=== PATIENT | female | born 1995 ===

== ENCOUNTER 2016-11-07 03:24 | Inpatient (IN) ==
[2016-11-07] MEDS ORDERED: FAMOTIDINE 20 MG/2 ML VIAL IV ONE (03:33)
[2016-11-07] MEDS ORDERED: CITRIC ACID/SODIUM CITRATE 30 ML UDCUP PO ONE (03:33)
[2016-11-07] MEDS ORDERED: ceFAZolin 2,000 MG in SODIUM CHLORIDE 0.9% 100 ML IV ONE (03:33)
[2016-11-07] MEDS ORDERED: SODIUM CHLORIDE 0.9% 250 ML IV PRN ×3 (03:35→18:27)
[2016-11-07 03:39] LABS: Basophils % 0.1 % (0.0-0.8); Eosinophils % 0.2 % (0.00-10.9); Immature Granulocytes % 0.5 %; Immature Granulocytes Absolute 0.06 #; Lymphocytes # 1.8 10*3/uL (1.4-4.0); Lymphocytes % 13.5 % (21.3-54.2); Mean Corpuscular HGB Conc 32.1 GM/DL (32-36); Mean Corpuscular Hemoglobin 26 PG (27-34); Mean Corpuscular Volume 79.8 FL (87-102); Mean Platelet Volume 12.1 FL (9.6-12.0); Monocytes # 0.9 10*3/uL (0.11-0.8); Monocytes % 6.8 % (1.7-12.7); Neutrophils # 10.3 10*3/uL (1.4-7.4); Neutrophils % 78.9 % (38.7-73.9); Platelet Count 167 T/CUMM (130-400); Red Blood Count 3.51 MC/CUMM (3.8-5.5); Red Cell Distribution Width 13.2 % (9.3-17.3)
[2016-11-07] MEDS ORDERED: LIDOCAINE 1% 5 ML VIAL ONE (03:43)
[2016-11-07] MEDS ORDERED: ONDANSETRON 4 MG/2 ML VIAL ONE (03:43)
[2016-11-07] MEDS ORDERED: PHENYLEPHRINE 1 MG/10 ML SYRINGE IV ONE (03:43)
[2016-11-07] MEDS ORDERED: PROPOFOL 200 MG/20 ML VIAL IV ONE (03:43)
[2016-11-07] MEDS ORDERED: ROCURONIUM 100 MG/10 ML VIAL IV ONE (03:43)
[2016-11-07] MEDS ORDERED: SUCCINYLCHOLINE 200 MG/10 ML VIAL ONE (03:43)
[2016-11-07] MEDS ORDERED: LACTATED RINGERS 1,000 ML IV SCH ×2 (04:00→05:00)
[2016-11-07] MEDS ORDERED: OXYTOCIN 10 UNIT/ML VIAL ONE (04:22)
[2016-11-07] MEDS ORDERED: METHYLERGONOVINE 0.2 MG/1 ML AMP IM ONE (04:25)
[2016-11-07] MEDS ORDERED: METHYLERGONOVINE 0.2 MG/1 ML AMP ONE (04:25)
--- NOTE | 2016-11-07 04:33 | OB/GYN History & Physical ---
History of Present Illness Chief complaint: Premature labor, vaginal bleeding, pelvic History of present illness: Ms. Lord is a 21 year old female 21-year-old 3 para 2 previous 2, previous abruptio placenta, premature labor as well, who presents from the [facility] with active bleeding heavy and increasing abdominal pressure. EDC is 01/12/2017 approximately 30 weeks and 4 days. Patient was immediately upon arrival second IV was started she was prepped for an emergency section for rule out abruptio placenta. heart tones were not obtained in preparation for her section her abdomen was increasingly firm and guarded. Home Medications Medication Instructions Recorded Confirmed Type No Known Home Medications [No 11/02/16 11/07/16 History Known Home Medications] Allergies Allergy/AdvReac Type Severity Reaction Status Date / Time No Known Allergies Allergy Verified 06/28/15 04:25 Medical,Surgical,& Family Hx - Medical History Neurology: No history of: Seizures Reproductive: History of: Complication (abruption w/ last ) No history of: Ectopic - Surgical History Reproductive Surgeries: Surgical HX of;: Section (x2) - Family History Family History: Reports;: Family Diabetes (mom) Denies;: Family Anesthesia Reaction, Family Cancer, Family Heart Disease, Family Hypertension, Family Psychiatric Problems, Family Stroke - Social History Smoking Status: Never smoker Frequency of Alcohol Use: None Type of Drug Use: None 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: Vital Signs Temp Pulse Resp BP Pulse Ox 11/07/16 03:36 98.1 F 98 H 22 120/73 100 General appearance: severe distress - Head Head exam: Present: normal inspection - Eye Eye exam: Present: EOMI Pupils: Present: MARY ANNE - ENT ENT exam: Present: normal exam - Neck Neck exam: Present: normal inspection - Respiratory Respiratory exam: Present: clear to auscultation bilaterally - Breast Breasts: as per HPI Menstruation: as per HPI - Cardiovascular Cardiovascular exam: Present: regular rate and rhythm - GI/Abdominal GI/Abdominal exam: Present: normal bowel sounds - Extremities Exam Extremities exam: Present: normal inspection - Back Exam Back exam: Present: normal inspection - Neurological Exam Neurological exam: Present: alert, oriented X3 - Psychiatric Psychiatric exam: Present: normal affect - Skin Skin exam: Present: normal color Assessment and Plan (1) Abruptio placenta Status: Acute Assessment and plan: We will proceed with emergency section at 30+ weeks gestation secondary to abruptio placentae Current Visit: No Results - Labs CBC & BMP: 11/07/16 03:36
--- NOTE | 2016-11-07 04:38 | Operative Note ---
Date of procedure: 11/07/16 Procedure: Preoperative diagnosis: Prematurity, active labor, abruptio placenta Postoperative diagnosis: Same Anesthesia:[] General Estimated blood loss: [] 600 Surgeon: Dr. 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 She was placed in supine position her abdomen was prepped and draped in usual manner for major abdominal surgery. Through an abdominal incision the skin, subcutaneous, fascial layer and peritoneal the abdomen was entered. The uterus was blue in color demonstrating blood in interim mural. The bladder flap was created and a low transverse incision was made.. Fluid was bloody and normal amount X, Apgars, the placenta was delivered and was approximately 80% from the posterior endometrial lining. And sent to lab for further evaluation. There was significant amount of blood in the uterine cavity. Uterus was injected with intrauterine Pitocin. The first layer of the uterus was closed with #1 Vicryl in a continuous locking manner. Close to imbricate the first layer with #1 Vicryl. The peritoneum was approximated with #2-0 Vicryl.[] All the last sponges and instruments were accounted for -2.) #2-0 Vicryl. Fascia was approximated with #0-0 Maxon.. The skin was approximated with melissa. She tolerated procedure well and was taken to recovery room in stable condition. Surgeon / Physician: Gisella Clark Results - Labs CBC & BMP: 11/07/16 03:36 Discharge Plan - Discharge Medications No Action No Known Home Medications [No Known Home Medications] - Follow Up or Referral - Forms/Instructions
[2016-11-07] MEDS ORDERED: SIMETHICONE CHEW 80 MG TABLET PO PRN (04:39)
[2016-11-07] MEDS ORDERED: RHO(D) IMMUNE GLOBULIN 300 MCG SYRINGE IM ONE (04:39)
[2016-11-07] MEDS ORDERED: ONDANSETRON 4 MG/2 ML VIAL IV PRN (04:39)
[2016-11-07] MEDS ORDERED: OXYTOCIN/LR 20 UNIT/1,000 ML BAG IV ONE ×2 (04:39→04:41)
[2016-11-07] MEDS ORDERED: ACETAMINOPHEN 325 MG TABLET PO PRN (04:39)
--- NOTE | 2016-11-07 04:39 | Anesthesia Post-Op ---
Anesthesia Post OP - Post Ansesthetic Evaluation Patient seen in post op: Yes Resp: within normal limits CV: within normal limits Mental: within normal limits Temp: within normal limits Oauy-[id number]-Uhzbdvukc: within normal limits Nausea and Vomiting: within normal limits Pain: within normal limits
[2016-11-07] MEDS ORDERED: HYDROmorphone 2 MG/1 ML VIAL ONE (04:42)
[2016-11-07] MEDS ORDERED: fentaNYL 100 MCG/2 ML VIAL ONE (04:43)
[2016-11-07] MEDS ORDERED: MIDAZOLAM 2 MG/2 ML VIAL ONE (04:44)
[2016-11-07] MEDS ORDERED: hydrOXYzine HCL 25 MG/1 ML VIAL IM PRN (04:48)
[2016-11-07] MEDS ORDERED: diphenhydrAMINE 50 MG/1 ML VIAL IV PRN ×2 (04:48)
[2016-11-07] MEDS ORDERED: HYDROmorphone 2 MG/1 ML VIAL IV ONE (04:50)
[2016-11-07] MEDS ORDERED: SEVOFLURANE 1 UNIT/15 MINUTE INH ONE (04:51)
[2016-11-07 04:54] LABS: Cord Venous Blood HCO3 7.5 MMOL/L; Cord Venous Blood PO2 19.9
[2016-11-07] MEDS ORDERED: HYDROmorphone PCA 30 MG/30 ML SYRINGE IV SCH (05:00)
[2016-11-07] MEDS ORDERED: SODIUM CHLORIDE 0.9% 1,000 ML IV SCH (05:00)
[2016-11-07 06:52] LABS: HIV Antigen/Antibody Result Nonreactive (Nonreactive); Hepatitis B Surface Ag Quant < 0.10 Index; Hepatitis B Surface Ag Result Negative (Negative)
[2016-11-07] MEDS ORDERED: LORazepam 2 MG/1 ML VIAL IV PRN ×2 (12:05→12:06)
[2016-11-07 12:25] LABS: Hematocrit 29.4 VOL% (35.7-47.0); Hemoglobin 9.8 GM/DL (12.0-16.0); Platelet Count 137 T/CUMM (130-400)
[2016-11-07 12:46] LABS: INR 1.1; PT Patient Result 11.4 SECS; Partial Thromboplastin Time 33.1 SECS (0-40)
[2016-11-07] MEDS: LACTATED RINGERS 1,000 ML IV SCH ×3 (14:30→22:29)
[2016-11-07] MEDS: MULTIVITAMIN (PRENATAL) TABLET PO SCH (17:08)
[2016-11-07] MEDS: DOCUSATE SODIUM 100 MG CAPSULE PO SCH ×2 (17:08→21:10)
[2016-11-07] MEDS ORDERED: FUROSEMIDE 40 MG/4 ML VIAL IV ONE (18:27)
[2016-11-07] MEDS: IBUPROFEN 800 MG TABLET PO PRN (21:09)
[2016-11-08 05:25] LABS: Basophils % 0.2 % (0.0-0.8); Eosinophils % 0.2 % (0.00-10.9); Hematocrit 21.9 VOL% (35.7-47.0); Immature Granulocytes % 0.3 %; Immature Granulocytes Absolute 0.03 #; Lymphocytes # 1.8 10*3/uL (1.4-4.0); Lymphocytes % 18.4 % (21.3-54.2); Mean Corpuscular HGB Conc 33.8 GM/DL (32-36); Mean Corpuscular Hemoglobin 27 PG (27-34); Mean Corpuscular Volume 80.8 FL (87-102); Mean Platelet Volume 12.9 FL (9.6-12.0); Monocytes # 0.7 10*3/uL (0.11-0.8); Monocytes % 7.2 % (1.7-12.7); Neutrophils % 73.7 % (38.7-73.9); Red Cell Distribution Width 13.7 % (9.3-17.3); White Blood Count 9.5 T/CUMM (4-12)
[2016-11-08 05:33] LABS: Red Blood Count 2.71 MC/CUMM (3.8-5.5)
[2016-11-08 05:34] LABS: Hemoglobin 7.4 GM/DL (12.0-16.0); Platelet Count 136 T/CUMM (130-400)
[2016-11-08] MEDS ORDERED: SODIUM CHLORIDE 0.9% 250 ML IV PRN (07:02)
[2016-11-08] MEDS ORDERED: FERROUS SULFATE 325 MG TABLET PO SCH (09:00)
[2016-11-08] MEDS: MULTIVITAMIN (PRENATAL) TABLET PO SCH (09:28)
[2016-11-08] MEDS: DOCUSATE SODIUM 100 MG CAPSULE PO SCH ×2 (09:28→21:09)
[2016-11-08] MEDS: FERROUS SULFATE 325 MG TABLET PO SCH ×2 (09:28→21:09)
[2016-11-08] MEDS: IBUPROFEN 800 MG TABLET PO PRN (12:31)
[2016-11-08] MEDS: MAGNESIUM HYDROXIDE SUSP 30 ML UDCUP PO PRN (12:32)
[2016-11-08 17:00] LABS: Basophils % 0.2 % (0.0-0.8); Eosinophils % 0.3 % (0.00-10.9); Hematocrit 28.3 VOL% (35.7-47.0); Hemoglobin 9.7 GM/DL (12.0-16.0); Immature Granulocytes % 0.6 %; Immature Granulocytes Absolute 0.07 #; Lymphocytes % 18.6 % (21.3-54.2); Mean Corpuscular HGB Conc 34.3 GM/DL (32-36); Mean Corpuscular Hemoglobin 29 PG (27-34); Mean Corpuscular Volume 83.2 FL (87-102); Mean Platelet Volume 12.9 FL (9.6-12.0); Monocytes # 0.8 10*3/uL (0.11-0.8); Monocytes % 7.2 % (1.7-12.7); Neutrophils # 7.9 10*3/uL (1.4-7.4); Neutrophils % 73.1 % (38.7-73.9); Platelet Count 127 T/CUMM (130-400); White Blood Count 10.9 T/CUMM (4-12)
[2016-11-09 07:32] VITALS: BP 104/59
[2016-11-09] MEDS: MULTIVITAMIN (PRENATAL) TABLET PO SCH (08:26)
[2016-11-09] MEDS: FERROUS SULFATE 325 MG TABLET PO SCH (08:26)
[2016-11-09] MEDS: DOCUSATE SODIUM 100 MG CAPSULE PO SCH (08:26)
[2016-11-09] MEDS: MAGNESIUM HYDROXIDE SUSP 30 ML UDCUP PO PRN (08:28)
--- NOTE | 2016-11-09 09:15 | OB/GYN Progress Note ---
Assessment and Plan (1) Status post repeat low transverse section Status: Acute Assessment and plan: Routine postop orders. 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 9:00 AM and the patient is stable with no complaints. Her incision is well approximated and she is in relatively good spirits considering her situation. 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 - Constitutional Vitals: Vital Signs Temp Pulse Pulse Resp BP BP Pulse Ox 11/09/16 07:44 20 11/09/16 07:31 97.2 F L 94 H 20 104/59 11/09/16 05:45 18 11/09/16 04:00 97.1 F L 84 18 106/58 11/09/16 00:00 98.4 F 90 18 107/55 11/08/16 22:00 18 11/08/16 19:33 97.7 F 96 H 20 129/77 11/08/16 15:29 97.1 F L 78 18 92/50 11/08/16 14:05 97.1 F L 99 H 20 109/74 97 11/08/16 12:17 97.8 F 99 H 18 103/56 11/08/16 12:00 97.8 F 99 H 20 103/56 11/08/16 11:17 97.5 F L 74 18 115/66 100 11/08/16 10:47 98 F 88 18 108/59 99 11/08/16 10:42 97.2 F L 91 H 16 99 11/08/16 10:37 97.5 F L 94 H 18 109/63 100 11/08/16 10:27 97.5 F L 85 18 107/66 100 11/08/16 09:56 98.3 F 98 H 18 108/71 Pulse Ox 11/09/16 07:44 11/09/16 07:31 99 11/09/16 05:45 11/09/16 04:00 99 11/09/16 00:00 99 11/08/16 22:00 11/08/16 19:33 99 11/08/16 15:29 98 11/08/16 14:05 11/08/16 12:17 11/08/16 12:00 100 11/08/16 11:17 11/08/16 10:47 11/08/16 10:42 11/08/16 10:37 11/08/16 10:27 11/08/16 09:56 General appearance: no acute distress - Antepartum / Post Post Exam Breast: bilateral: normal Abdomen obstetrics: Present: bowel sounds normal Vagina: Present: normal moisture Uterus exam: Present: enlarged Anus/Rectum: Present: normal perianal skin - Respiratory Respiratory exam: Present: clear to auscultation bilaterally - Cardiovascular Cardiovascular exam: Present: regular rate and rhythm - GI/Abdominal GI/Abdominal exam: Present: normal bowel sounds, soft - Extremities Exam Extremities exam: Present: normal inspection - Neurological Exam Neurological exam: Present: alert, oriented X3 - Psychiatric Psychiatric exam: Present: normal affect, normal mood - Skin Skin exam: Present: normal color, warm Results - Labs CBC & BMP: 11/08/16 16:45
--- NOTE | 2016-11-09 09:21 | Discharge Summary ---
Hospital Course - Hospital Course Hospital Course: Ms. Lord is a 21-year-old female who presented to the labor department with complaints of abdominal rigidity. Upon admission the patient was noted to be having a placental abruption she was taken to the OR for an emergency C- section. The was performed per Dr. Clark. The patient did well however the infant did not survive. The patient has followed a normal postoperative course and she is doing well. Considering her situation her spirits are good. She denies any significant discomfort. Her incision is well approximated without signs of infection. Her bowel sounds are positive. She has had a normal bowel movement. Her fundus is firm and midline. Contraception options with this patient has been discussed thoroughly. Her vital signs and lab values are stable. She will be discharged home with prescriptions for pain and a follow-up appointment in our office. Diagnosis - Discharge Diagnosis (1) Status post repeat low transverse section Status: Acute (2) Abruptio placenta Status: Acute Specialty Discharge - Follow Up or Referrals Follow up with: Gisella Clark MD [Physician] - Discharge Plan - Discharge Data Disposition: Disch To Home/Self Care Condition at Discharge: Stable Discharge Diet: advance to your usual diet, regular diet Activity: increase activity as tolerated, no lifting, no prolonged standing Hygiene: may shower Weight Bearing at Discharge: partial weight bearing Driving: not until seen by doctor Contact your physician if you experience:: fever over 101, pain uncontrolled by pain medications - Discharge Medications New Ferrous Sulfate Tab [Feosol Original Tab] 325 mg PO BID #60 tablet HYDROcodone/ACETAMIN 5-325 [[place] 5-325] 2 tablet PO Q6H PRN #45 tablet PRN Reason: Pain Severe (8-10) Ibuprofen Tab [Motrin Tab] 800 mg PO Q8H PRN #45 tablet PRN Reason: Pain Severe (8-10) No Action No Known Home Medications [No Known Home Medications] - Follow Up or Referral Follow Up: Gisella Clark MD [Physician] - 2 Weeks - Forms/Instructions Instructions: Section (DC), Depression (GEN), Surgical Site Infections (GEN), Wound Healing and Your Diet (DC), Bleeding (DC ) Exam - Constitutional Vitals: Period Temp Pulse Resp BP Sys/Major Pulse Ox Last 24 Hr 97.1 F-98.4 F 74-99 16-20 92-129/50-77 97-100 General appearance: no acute distress - Respiratory Respiratory exam: Present: clear to auscultation bilaterally - Cardiovascular Cardiovascular exam: Present: regular rate and rhythm - GI/Abdominal GI/Abdominal exam: Present: normal bowel sounds, soft - Extremities Exam Extremities exam: Present: normal inspection - Neurological Exam Neurological exam: Present: alert, oriented X3 - Psychiatric Psychiatric exam: Present: normal affect, normal mood - Skin Skin exam: Present: normal color, warm Discharge Results Labs on day of discharge: Labs from last 24 hours 11/08/16 11/08/16 16:45 06:31 WBC 10.9 RBC 3.40 L D Hgb 9.7 L D Hct 28.3 L MCV 83.2 L MCH 29 MCHC 34.3 RDW 14.0 Plt Count 127 L MPV 12.9 H Neut % (Auto) 73.1 Lymph % (Auto) 18.6 L [place] % (Auto) 7.2 Eos % (Auto) 0.3 Baso % (Auto) 0.2 Neut # (Auto) 7.9 H Lymph # (Auto) 2.0 [place] # (Auto) 0.8 Eos # (Auto) 0.0 Baso # (Auto) 0.0 Immature Gran % 0.6 Nucleated RBC % 0.0 Immature Gran # 0.07 Nucleated RBCs # 0.00 Blood Type Cancelled Antibody Screen Cancelled Crossmatch See Detail Blood Bank Comment Cancelled DS: Provider Date of admission: 11/07/16 03:33 Primary care physician: Naif Bush MD Attending physician on admission: Gisella Clark MD Consults: 11/07/16 03:33 Consult to Anesthesiology [CONS] Routine Consulting Provider: Reason for Anesthesiology: Pre-op Clearance Discharging clinician: Alize Mcgarry CNM Expected date of discharge: 11/09/16
--- NOTE | 2016-11-10 03:27 | Pathology Report from [facility] ---
MSIG ACCESSION # : [id number] PATIENT NAME : Latisha Amador ORDERING DR : CHUCKY ROTHMAN MD CLINICAL HX: IUP @ weeks - Placental abruptoin POST-OP DX: IUP @ weeks - Placenta abruption SPECIMEN INFO: Placenta GROSS DESCRIPTION: Received fresh labeled with the patients name and consists of a 285 gram placenta which measures 50.0 x 13.5 x 2.0 cm. membranes are pink-jara and translucent. The umbilical cord measures 13.0 cm, contains three vessels and is pericentrally inserted. The surface is blue-gonsalves and intact and displays markedly hemorrhagic cotyledons with a large depressed area noted measuring 11.0 x 6.5 cm. Sectioning reveals a possible infarction measuring 2.0 x 1.5 cm. Received separately in the container are multiple fragments of clotted blood measuring 10.0 x 10.0 cm in aggregate. Sections submitted: A membranes and cord, B and maternal surfaces. DIAGNOSIS FOR LATISHA AMADOR: PLACENTA, MEMBRANES, UMBILICAL CORD: Focal placental infarction, fibrin and blood clots. Tri-vessel umbilical cord, pericentrally inserted. Membranes with focal acute and chronic inflammation. COLLECTED DATE: 11/08/2016 [facility] REPORT DATE: 11/09/2016 ELECTRONICALLY SIGNED BY: Amadeo Van M.D. 11/09/2016 - 8:45:39 [place]
== END 2016-11-09 13:25 | disposition home or self-care (01) | DRG 540 ==
LOC: N.LDOUT 03:24 → N.LD 03:25 → N.OB 11-08 07:32
PROVIDERS: ADMIT Obstetrics & Gynecology; ATTEND Obstetrics & Gynecology
PROC: LDCSECT (ICD-10-PCS; 2016-11-07 03:45)

== ENCOUNTER 2019-02-17 07:49 | Inpatient (IN) ==
[2019-02-17] MEDS ORDERED: FAMOTIDINE 20 MG/2 ML VIAL IV ONE (10:47)
[2019-02-17] MEDS ORDERED: ceFAZolin 2,000 MG in PREMIX 1 EACH IV ONE (10:47)
[2019-02-17] MEDS ORDERED: CITRIC ACID/SODIUM CITRATE 30 ML UDCUP PO ONE (10:47)
[2019-02-17] MEDS ORDERED: LACTATED RINGERS 1,000 ML IV SCH (11:00)
[2019-02-17 11:18] LABS: Basophils % 0.3 % (0.0-0.8); Eosinophils % 0.3 % (0.00-10.9); Hematocrit 31.9 VOL% (35.7-47.0); Hemoglobin 10.2 GM/DL (12.0-16.0); Immature Granulocytes % 0.4 %; Immature Granulocytes Absolute 0.03 #; Lymphocytes # 1.3 10*3/uL (1.4-4.0); Lymphocytes % 17.7 % (21.3-54.2); Mean Corpuscular Volume 85.1 FL (87-102); Mean Platelet Volume 12.6 FL (9.6-12.0); Monocytes % 5.4 % (1.7-12.7); Neutrophils % 75.9 % (38.7-73.9); Platelet Count 192 T/CUMM (130-400); Red Blood Count 3.75 MC/CUMM (3.8-5.5); Red Cell Distribution Width 13.2 % (9.3-17.3); White Blood Count 7.4 T/CUMM (4-12)
[2019-02-17 11:48] LABS: Albumin 2.8 G/DL (3.4-5.0); Bilirubin,Total 0.4 MG/DL (0.2-1.0); Calcium 8.6 MG/DL (8.5-10.1); Osmolality,Calculated 277.3 MOS/KG (273-304); Total Protein 6.4 G/DL (6.4-8.3)
[2019-02-17] MEDS ORDERED: TRANEXAMIC ACID 1,000 MG/10 ML VIAL ONE (12:17)
[2019-02-17] MEDS ORDERED: METHYLERGONOVINE 0.2 MG/1 ML AMP ONE (12:17)
[2019-02-17] MEDS ORDERED: OXYTOCIN/LR 20 UNIT/1,000 ML BAG IV ONE ×2 (12:17→14:21)
[2019-02-17] MEDS ORDERED: miSOPROStoL 200 MCG TABLET ONE (12:17)
[2019-02-17] MEDS ORDERED: CARBOPROST TROMETHAMINE 250 MCG/ML AMP IM ONE (12:18)
[2019-02-17] MEDS ORDERED: OXYTOCIN 10 UNIT/ML VIAL ONE (12:18)
[2019-02-17 14:09] LABS: Cord Arterial Blood HCO3 22.3 MMOL/L
[2019-02-17 14:13] LABS: Cord Venous Blood HCO3 21.9 MMOL/L; Cord Venous Blood PCO2 41.4 MMHG; Cord Venous Blood PO2 32.9 MMHG
[2019-02-17] MEDS ORDERED: RHO(D) IMMUNE GLOBULIN 300 MCG SYRINGE IM ONE (14:21)
[2019-02-17] MEDS ORDERED: SIMETHICONE CHEW 80 MG TABLET PO PRN (14:21)
[2019-02-17] MEDS ORDERED: ACETAMINOPHEN 325 MG TABLET PO PRN (14:21)
[2019-02-17] MEDS ORDERED: BUPIVACAINE 0.5% 50 ML VIAL ONE (14:35)
[2019-02-17] MEDS ORDERED: BUPIVACAINE SPINAL 0.75% 2 ML AMP SPINAL ONE (14:35)
[2019-02-17] MEDS ORDERED: MORPHINE 10 MG/10 ML VIAL ONE (14:35)
[2019-02-17] MEDS ORDERED: ePHEDrine 50 MG/ML AMP ONE (14:36)
[2019-02-17] MEDS ORDERED: PHENYLEPHRINE 1 MG/10 ML SYRINGE IV ONE (14:36)
[2019-02-17] MEDS ORDERED: ONDANSETRON 4 MG/2 ML VIAL ONE (14:36)
[2019-02-17] MEDS ORDERED: DEXAMETHASONE 4 MG/1 ML VIAL ONE (14:36)
[2019-02-17] MEDS: ONDANSETRON 4 MG/2 ML VIAL IV PRN ×2 (14:56→19:34)
[2019-02-17 15:19] LABS: Apearance,Urine CLEAR (Clear); Bacteria,Urine Occasional /HPF (Few); Bilirubin,Urine Negative (Negative); Blood, Urine Negative (Negative); Glucose,Urine (UA) Negative (Negative); Ketones,Urine 20 mg/dL (Negative); Mucus,Urine Occasional /LPF (Occasional); Nitrite,Urine Negative (Negative); Protein,Urine Negative; RBC,Urine 1 /HPF (0-4); Squamous Epithelial Cell,Urine Occasional /HPF (0-10); Urine Color Yellow (Yellow); Urine Specific Gravity 1.009 (1.001-1.035); Urine Urobilinogen < 2.0 EU/DL (0.2-1.0); WBC,Urine <1 /HPF (0-6)
[2019-02-17 22:02] LABS: Hematocrit 30.3 VOL% (35.7-47.0); Hemoglobin 9.7 GM/DL (12.0-16.0); Immature Granulocytes % 0.4 %; Immature Granulocytes Absolute 0.07 #; Lymphocytes # 0.5 10*3/uL (1.4-4.0); Lymphocytes % 3.2 % (21.3-54.2); Mean Corpuscular Volume 85.1 FL (87-102); Mean Platelet Volume 12.4 FL (9.6-12.0); Monocytes % 2.2 % (1.7-12.7); Neutrophils % 94.2 % (38.7-73.9); Platelet Count 196 T/CUMM (130-400); Red Blood Count 3.56 MC/CUMM (3.8-5.5); Red Cell Distribution Width 13.1 % (9.3-17.3); White Blood Count 15.8 T/CUMM (4-12)
[2019-02-17] MEDS: DOCUSATE SODIUM 100 MG CAPSULE PO SCH (22:03)
[2019-02-17 22:24] LABS: Lymphocytes 1 % (20-55); Segmented Neutrophils 97 % (50-85); Total Cells Counted 100
[2019-02-17 22:25] LABS: Microcytosis 1+; Ovalocytes 3+; Platelet Estimate Normal
[2019-02-17] MEDS: ceFAZolin 1,000 MG in SYRINGE 1 EACH IV SCH (22:35)
[2019-02-18] MEDS: LACTATED RINGERS 1,000 ML IV SCH ×3 (03:01→10:17)
[2019-02-18 06:15] LABS: Basophils % 0.1 % (0.0-0.8); Eosinophils % 0.1 % (0.00-10.9); Hematocrit 30.8 VOL% (35.7-47.0); Hemoglobin 9.5 GM/DL (12.0-16.0); Immature Granulocytes % 0.4 %; Immature Granulocytes Absolute 0.06 #; Lymphocytes # 1.5 10*3/uL (1.4-4.0); Lymphocytes % 10.8 % (21.3-54.2); Mean Corpuscular HGB Conc 30.8 GM/DL (32-36); Mean Corpuscular Volume 88.5 FL (87-102); Mean Platelet Volume 13.5 FL (9.6-12.0); Monocytes % 8.4 % (1.7-12.7); Neutrophils % 80.2 % (38.7-73.9); Platelet Count 144 T/CUMM (130-400); Red Blood Count 3.48 MC/CUMM (3.8-5.5); Red Cell Distribution Width 13.4 % (9.3-17.3); White Blood Count 14.3 T/CUMM (4-12)
[2019-02-18] MEDS: ceFAZolin 1,000 MG in SYRINGE 1 EACH IV SCH (06:43)
[2019-02-18] MEDS: IBUPROFEN 800 MG TABLET PO PRN ×2 (10:02→19:46)
[2019-02-18] MEDS: MULTIVITAMIN (PRENATAL) TABLET PO SCH (10:02)
[2019-02-18] MEDS: MAGNESIUM HYDROXIDE SUSP 30 ML UDCUP PO PRN ×2 (10:02→20:40)
[2019-02-18] MEDS: DOCUSATE SODIUM 100 MG CAPSULE PO SCH ×2 (10:15→20:39)
[2019-02-19 07:37] VITALS: BP 98/52
[2019-02-19] MEDS ORDERED: MAGNESIUM HYDROXIDE SUSP 30 ML UDCUP PO SCH (09:00)
[2019-02-19] MEDS ORDERED: METOCLOPRAMIDE 10 MG TABLET PO SCH (09:00)
[2019-02-19] MEDS: MULTIVITAMIN (PRENATAL) TABLET PO SCH (09:24)
[2019-02-19] MEDS: DOCUSATE SODIUM 100 MG CAPSULE PO SCH (09:24)
[2019-02-19] MEDS: IBUPROFEN 800 MG TABLET PO PRN (09:25)
== END 2019-02-19 15:45 | disposition home or self-care (01) | DRG 540 ==
LOC: N.LDOUT 07:49 → N.LD 07:50 → N.OB 21:00
PROVIDERS: ADMIT Obstetrics & Gynecology; ATTEND Obstetrics & Gynecology
PROC: LDCSECT (ICD-10-PCS; 2019-02-17 11:00)

== ENCOUNTER 2021-02-27 14:22 | Inpatient (IN) ==
[2021-02-27 15:08] LABS: Bacteria,Urine Occasional /HPF (Few); Bilirubin,Urine Negative (Negative); Blood, Urine Negative (Negative); Glucose,Urine (UA) Negative (Negative); Ketones,Urine Negative (Negative); Nitrite,Urine Negative (Negative); Protein,Urine Negative; RBC,Urine 1 /HPF (0-4); Squamous Epithelial Cell,Urine Occasional /HPF (0-10); Urine Appearance CLEAR (Clear); Urine Color Straw (Yellow); Urine Specific Gravity 1.004 (1.001-1.035); Urine Urobilinogen < 2.0 EU/DL (0.2-1.0)
[2021-02-27] MEDS ORDERED: MEPERIDINE 50 MG/1 ML VIAL IM ONE (15:53)
[2021-02-27] MEDS ORDERED: PROMETHAZINE 25 MG/1 ML VIAL IM ONE (15:53)
[2021-02-27 16:15] LABS: Basophils % 0.5 % (0.0-0.8); Eosinophils # 0.1 10*3/uL (0.0-0.87); Eosinophils % 0.8 % (0.00-10.9); Hematocrit 31.3 VOL% (35.7-47.0); Hemoglobin 9.5 GM/DL (12.0-16.0); Immature Granulocytes % 0.2 %; Immature Granulocytes Absolute 0.02 #; Lymphocytes # 1.7 10*3/uL (1.4-4.0); Lymphocytes % 19.7 % (21.3-54.2); Mean Corpuscular HGB Conc 30.4 GM/DL (32-36); Mean Corpuscular Volume 75.6 FL (87-102); Mean Platelet Volume 11.6 FL (9.6-12.0); Monocytes % 6.3 % (1.7-12.7); Neutrophils % 72.5 % (38.7-73.9); Platelet Count 237 T/CUMM (130-400); Red Blood Count 4.14 MC/CUMM (3.8-5.5); Red Cell Distribution Width 15.6 % (9.3-17.3); White Blood Count 8.6 T/CUMM (4-12)
[2021-02-27 16:43] LABS: Albumin 2.6 G/DL (3.4-5.0); Bilirubin,Total 0.4 MG/DL (0.20-1.00); Calcium 8.5 MG/DL (8.5-10.1); Potassium 3.6 MMOL/L (3.5-5.1)
[2021-02-27] MEDS ORDERED: CITRIC ACID/SODIUM CITRATE 30 ML UDCUP PO ONE (17:55)
[2021-02-27] MEDS ORDERED: ceFAZolin 3,000 MG in SYRINGE 1 EACH IV ONE (17:55)
[2021-02-27] MEDS ORDERED: FAMOTIDINE 20 MG/2 ML VIAL IV ONE (17:55)
[2021-02-27] MEDS ORDERED: OXYTOCIN/LR 20 UNIT/1,000 ML BAG IV ONE ×3 (18:10→21:00)
[2021-02-27] MEDS: LACTATED RINGERS 1,000 ML IV SCH (18:12)
[2021-02-27] MEDS ORDERED: BUPIVACAINE SPINAL 0.75% 2 ML AMP SPINAL ONE (18:24)
[2021-02-27] MEDS ORDERED: ONDANSETRON 4 MG/2 ML VIAL ONE (18:24)
[2021-02-27] MEDS ORDERED: ePHEDrine 50 MG/ML VIAL ONE (18:25)
[2021-02-27 18:38] LABS: INR 0.9; PT Patient Result 10.3 SECS (10.5-12.0); Partial Thromboplastin Time 33.9 SECS (23.8-32.1)
[2021-02-27] MEDS ORDERED: TRANEXAMIC ACID 1,000 MG/10 ML VIAL ONE (18:51)
[2021-02-27] MEDS ORDERED: miSOPROStoL 200 MCG TABLET ONE (18:51)
[2021-02-27] MEDS ORDERED: CARBOPROST TROMETHAMINE 250 MCG/ML AMP IM ONE (18:52)
[2021-02-27] MEDS ORDERED: METHYLERGONOVINE 0.2 MG/1 ML AMP ONE (18:52)
[2021-02-27 19:35] LABS: Cord Arterial Blood HCO3 20.3 MMOL/L
[2021-02-27 19:40] LABS: Cord Venous Blood HCO3 21.7 MMOL/L; Cord Venous Blood PCO2 45.5 MMHG; Cord Venous Blood PO2 30.5
[2021-02-27 19:50] LABS: Bacteria,Urine Occasional /HPF (Few); Bilirubin,Urine Negative (Negative); Blood, Urine Negative (Negative); Glucose,Urine (UA) Negative (Negative); Ketones,Urine 20 mg/dL (Negative); Mucus,Urine Occasional /LPF (Occasional); Nitrite,Urine Negative (Negative); Protein,Urine Negative; RBC,Urine <1 /HPF (0-4); Urine Appearance CLEAR (Clear); Urine Color Yellow (Yellow); Urine Specific Gravity 1.006 (1.001-1.035); Urine Urobilinogen < 2.0 EU/DL (0.2-1.0)
[2021-02-27 19:54] LABS: Protein/Creatinine Ratio,Urine 0.2 RATIO
[2021-02-27] MEDS ORDERED: ACETAMINOPHEN 325 MG TABLET PO PRN (20:10)
[2021-02-27] MEDS ORDERED: RHO(D) IMMUNE GLOBULIN 300 MCG SYRINGE IM ONE (20:10)
[2021-02-27] MEDS ORDERED: ONDANSETRON 4 MG/2 ML VIAL IV PRN (20:10)
[2021-02-27] MEDS ORDERED: MEPERIDINE 50 MG/1 ML VIAL IV PRN (20:14)
[2021-02-27] MEDS ORDERED: LACTATED RINGERS 1,000 ML IV SCH (20:30)
[2021-02-27] MEDS: DOCUSATE SODIUM 100 MG CAPSULE PO SCH (21:23)
[2021-02-27] MEDS: KETOROLAC 30 MG/1 ML VIAL IV SCH (22:54)
[2021-02-28] MEDS: ACETAMINOPHEN 500 MG TABLET PO SCH ×3 (01:50→14:01)
[2021-02-28] MEDS: LACTATED RINGERS 1,000 ML IV SCH (03:13)
[2021-02-28] MEDS: KETOROLAC 30 MG/1 ML VIAL IV SCH ×3 (05:55→17:29)
[2021-02-28 05:56] LABS: Basophils % 0.3 % (0.0-0.8); Eosinophils % 0.2 % (0.00-10.9); Hematocrit 25.8 VOL% (35.7-47.0); Hemoglobin 7.7 GM/DL (12.0-16.0); Immature Granulocytes % 1.3 %; Immature Granulocytes Absolute 0.14 #; Lymphocytes # 1.4 10*3/uL (1.4-4.0); Lymphocytes % 13.3 % (21.3-54.2); Mean Corpuscular HGB Conc 29.8 GM/DL (32-36); Mean Platelet Volume 12.8 FL (9.6-12.0); Monocytes % 6.3 % (1.7-12.7); Neutrophils % 78.6 % (38.7-73.9); Platelet Count 207 T/CUMM (130-400); Red Blood Count 3.35 MC/CUMM (3.8-5.5); Red Cell Distribution Width 15.6 % (9.3-17.3); White Blood Count 10.4 T/CUMM (4-12)
[2021-02-28 06:22] LABS: Hypochromasia 1+; Microcytosis 1+; Ovalocytes Few; Platelet Estimate Normal
[2021-02-28] MEDS: METOCLOPRAMIDE 10 MG TABLET PO SCH ×2 (07:31→15:26)
[2021-02-28] MEDS: MULTIVITAMIN (PRENATAL) TABLET PO SCH (09:00)
[2021-02-28] MEDS: FERROUS SULFATE 325 MG TABLET PO SCH ×3 (09:00→20:49)
[2021-02-28] MEDS: DOCUSATE SODIUM 100 MG CAPSULE PO SCH ×2 (09:00→20:49)
[2021-02-28] MEDS: MAGNESIUM HYDROXIDE SUSP 30 ML UDCUP PO PRN ×2 (14:00→20:49)
[2021-02-28] MEDS: IBUPROFEN 800 MG TABLET PO PRN (15:25)
[2021-03-01] MEDS: IBUPROFEN 800 MG TABLET PO PRN ×2 (00:15→08:38)
[2021-03-01] MEDS: METOCLOPRAMIDE 10 MG TABLET PO SCH ×2 (00:23→08:32)
[2021-03-01] MEDS: SIMETHICONE CHEW 80 MG TABLET PO PRN ×2 (02:45→08:32)
[2021-03-01] MEDS: DOCUSATE SODIUM 100 MG CAPSULE PO SCH (08:32)
[2021-03-01] MEDS: MAGNESIUM HYDROXIDE SUSP 30 ML UDCUP PO PRN ×2 (08:32→08:34)
[2021-03-01] MEDS: MULTIVITAMIN (PRENATAL) TABLET PO SCH (08:32)
[2021-03-01] MEDS: FERROUS SULFATE 325 MG TABLET PO SCH (08:32)
[2021-03-01 10:05] VITALS: BP 125/74
== END 2021-03-01 14:06 | disposition home or self-care (01) | DRG 788 ==
LOC: N.LDOUT 14:22 → N.LD 14:32 → N.OB 02-28 00:15
PROVIDERS: ADMIT Obstetrics & Gynecology; ATTEND Obstetrics & Gynecology
PROC: LDCSECT (ICD-10-PCS; 2021-02-27 18:50)